=== PATIENT | female | born 1960 | race Caucasian/White ===

== ENCOUNTER 2025-08-31 16:02 | Emergency (ER) | payer MEDICAID ==
[~2025-08-31] VITALS: Ht 154.9 cm; Wt 81.8 kg
--- NOTE | 2025-08-31 16:12 | Physician Documentation ---
History of Present Illness ~ Chief Complaint: Urinary Symptoms Stated Complaint: ABD PAIN Time Seen by MD: 16:41 HPI Patient is a very pleasant 65-year-old female that presents to the emergency department for evaluation of abdominal pain times last 4 hours. Patient reports that she has had a history of renal calculi in the past she thought over the last several days that she may have been passing a kidney stone as she has some dysuria. Patient reports this morning she went to breakfast with her after she got home she vomited 1 time. Patient reports that she thought that the med may have been related to something she ate but patient also reports having chills and feeling cold since that time. Patient reports abdominal pain primarily on the left side radiating around to the left flank. Patient denies known fevers overt nausea or any diarrhea at this time. Patient denies any blood in her bowel or urine. No chest pain no shortness of breath no headache no dizziness at this time. Medication Reconciliation Allergies: Coded Allergies: Penicillins (Verified Allergy, Unknown, 08/31/25) codeine (Verified Allergy, Unknown, 08/31/25) Scheduled Cefpodoxime Proxetil (Cefpodoxime Proxetil), 2 TAB PO Q12H Review of Systems ROS As stated above in the HPI, otherwise all systems are reviewed and negative. Physical Exam Vital Signs: Temperature: 98.2, Source: Temporal, Heart Rate: 70, Respiratory Rate: 18, Pulse Oximetry: 99, Weight: 81.820 Oxygen Flow Rate: 0 Physical Exam VITALS: Reviewed and as above. GENERAL: Alert, no apparent distress. HEENT: Normocephalic, atraumatic, PERRL, EOMI, dry mucosa, no erythema RESPIRATORY: Lungs clear, normal breath sounds, no respiratory distress. CHEST: No accessory muscle use, no retractions CV: Regular rate, rhythm, no edema, no murmur, No: JVD GI: Soft, mild tenderness noted with palpation over the left lower quadrant and suprapubic region, bowels sounds present, no rebound, guarding, or rigidity BACK: Positive left CVA tenderness, or swelling MUSCULOSKELETAL No deformities, no edema SKIN: Warm and dry, no rash NEURO: Oriented x4, No motor or sensory deficit PSYCH: Normal mood and affect, no agitation Progress Results/Orders Results/Orders Orders - REESE,KIM A [employer] * Iv Access / Saline Lock * (08/31/25 18:14) Cult Urine + Line [address] (08/31/25 18:32) Completed Orders - REESEKIM MULLER [employer] Cbc/Diff (08/31/25 16:41) CMP (08/31/25 16:41) Lipase (08/31/25 16:41) Ua W/Microscopic, Cult If Ind (08/31/25 16:10) Normal Saline 1000ml (0.9% Sodium Chlori (08/31/25 18:15) Iohexol 300mg/Ml 100ml Inj. (Omnipaque-3 (08/31/25 18:21) Ceftriaxone Im Kit W/Lidocaine (Rocephin (08/31/25 19:20) Ceftriaxone/K6i-Yjetunvb 1gm (Rocephin 1 (08/31/25 19:35) Ketorolac Trometh 15mg/Ml Vial (Toradol (08/31/25 19:35) Medications Received in ER Medications (Trade) Dose Ordered Sig/Chiquis Route PRN Reason Start Time Stop Time Status Last Admin Dose Admin Sodium Chloride 1,000 ml @ 1,000 mls/hr ONCE ONCE IV 08/31/25 18:15 08/31/25 19:14 DC 08/31/25 18:15 1,000 MLS/HR Ceftriaxone Sodium 50 ml @ 100 mls/hr ONCE ONCE IV 08/31/25 19:35 08/31/25 20:04 DC 08/31/25 19:54 100 MLS/HR (Toradol injection) 15 mg ONCE ONCE IV 08/31/25 19:35 08/31/25 19:36 DC 08/31/25 19:53 15 MG Vital Signs 08/31/25 16:07 Temp 98.2 Pulse 70 Resp 18 B/P (MAP) 126/76 Pulse Ox 99 O2 Flow Rate 0 Laboratory Tests Test 08/31/25 16:10 08/31/25 17:05 Urine Specimen Description Cln catch midstream Urine Color Yellow Urine Clarity Clear Urine pH 6.0 Urine Specific Advance 1.010 Urine Protein 30 H Urine Glucose (UA) Negative Urine Ketones Negative Urine Occult Blood Large H Urine Nitrite Positive H Urine Bilirubin Negative Urine Urobilinogen 0.2 Urine Leukocyte Esterase Large H Urine RBC 20-50 Urine WBC Tntc H Urine Squamous Epithelial Cells Moderate Urine Bacteria 4+ Urine Culture Indicated Indicated Volume Urine Centrifuged 10 ml Urine Comment White Blood Count 15.0 H Red Blood Count 5.23 Hemoglobin 15.2 Hematocrit 46.0 H Mean Corpuscular Volume 88.0 Mean Corpuscular Hemoglobin 29.0 Mean Corpuscular Hemoglobin Concent 33.0 Red Cell Distribution Width 13.5 Platelet Count 234 Mean Platelet Volume 9.6 Neutrophils (%) (Auto) 83.6 H Lymphocytes (%) (Auto) 8.8 L Monocytes (%) (Auto) 7.1 Eosinophils (%) (Auto) 0.2 Basophils (%) (Auto) 0.3 Neutrophils # (Auto) 12.6 H Lymphocytes # (Auto) 1.3 Monocytes # (Auto) 1.1 H Eosinophils # (Auto) 0.0 Basophils # (Auto) 0.0 CBC Comment Sodium Level 139 Potassium Level 4.2 Chloride Level 106 Carbon Dioxide Level 21.8 L Anion Gap 11 Blood Urea Nitrogen 14 Creatinine 1.08 H Estimated GFR/1.73 m2 51 BUN/Creatinine Ratio 13.0 Glucose Level 210 H Calcium Level 9.4 Total Bilirubin 0.5 Aspartate Amino Transf (AST/SGOT) 23 Alanine Aminotransferase (ALT/SGPT) 26 Alkaline Phosphatase 169 H Total Protein 8.1 Albumin 3.8 Globulin 4.3 Albumin/Globulin Ratio 0.9 L Lipase 32 Chemistry Comments Microbiology Date/Time Source Procedure Growth Status 08/31/25 18:32 Urine Clean Catch Midstream Urine Culture - Preliminary Culture received. Resulted Medical Decision Making Additional information obtaine: other Findings Medical Decision-Making Diagnosis: Acute pyelonephritis with urinary tract infection Complexity of Care: Moderate Assessment and Clinical Reasoning: This 65-year-old female presented with left-sided abdominal pain radiating to the left flank, dysuria, vomiting, and chills, consistent with acute pyelonephritis. The diagnosis was supported by clinical presentation of flank pain, which is nearly universal in acute pyelonephritis, along with laboratory evidence of urinary tract infection. [2] Her history of renal calculi raised concern for potential urolithiasis with concurrent infection, though she denied hematuria and had no fever documented at presentation. Risk Stratification: The patient was assessed as having uncomplicated acute pyelonephritis appropriate for outpatient management. She demonstrated mild illness severity without sepsis, no persistent vomiting after initial treatment, stable medical conditions, and ability to tolerate oral therapy. While her history of renal stones represents a potential complicating factor, the absence of imaging findings suggesting obstruction or abscess and her clinical improvement with initial therapy supported outpatient disposition. [1-4] Treatment Plan and Rationale: The patient received appropriate initial management including intravenous fluid resuscitation, ketorolac for pain control, and ceftriaxone 1-2 grams intravenously as first-line parenteral therapy. Given increasing fluoroquinolone and trimethoprim-sulfamethoxazole resistance rates in community-acquired urinary pathogens, administration of a long-acting parenteral antibiotic prior to discharge is recommended when local resistance to oral agents may exceed 10%. [1-3] For outpatient continuation therapy, oral fluoroquinolone or trimethoprim- sulfamethoxazole would be appropriate empiric choices pending urine culture and susceptibility results. Alternatively, a third-generation oral cephalosporin such as cefpodoxime may be considered as step-down therapy. The standard du ration of therapy for uncomplicated pyelonephritis is [1-2][5-6] 5-7 days for fluoroquinolones or 7-14 days for other agents. [7-8] Follow-up and Monitoring: Close follow-up within 24-48 hours is essential to confirm clinical improvement, as patients discharged before susceptibility results require monitoring to ensure the selected oral agent is appropriate. The patient was counseled to return immediately if symptoms worsen or fail to improve within 1-2 days, as this would mandate repeat urine culture and imaging to evaluate for obstruction or other anatomical complications. Urine culture results will guide definitive antibiotic selection, and therapy should be adjusted if resistance to the empiric oral agent is identified. [3][9] Disposition: Discharge to home with oral antibiotic prescription, close outpatient follow-up arranged, and explicit return precautions provided. Urinary Diff Dx:Considerations: Include: AAA, , Aortic dissection, Appendicitis, Bowel obstruction, Cholelithiasis, Choleangitis, DJD, Ectopic , Hepatitis, HNP, Impaction, Intrauterine , Musculoskeletal pain, Ovarian torsion, Pancreatitis, PID, Post-Op complication, Pyelonephritis, Renal failure, Strain, Urinary Obstruction, Urolithiasis, Urinary retention, UTI, Vaginitis, Other Genital Diff Dx:Considerations: Include: -Complete, - Incomplete, -Inevitable, Ablortion-Missed, -Threatened, Abruptio placentae, Bartholin abscess, Bartholin cyst, Blood loss anemia, Constipation, Cervicitis, Dsymenorrhea, Ectopic , Foreign body, Hormonal, Hidradenitis suppurativa, Intrauterine , Menorrhagia, Menometrorrhagia, Menstrual bleeding, Myomatous uterus, Perianal abscess, Physiologic discharge, Pinworms, PID, Placenta previa, , Precipitous Hct, Trauma, UTI, Vaginitis(osis)-Atrophic, Vaginitis, Vaginitis(osis)-Bacterial, Vaginitis(osis)- Candidal, Vaginitis(osis)-Contact, Vaginitis(osis)-Herpes, Vaginitis(osis)- Trich., Other Departure Disposition: HOME / SELF CARE / HOMELESS Impression: Primary Impression: Acute urinary tract infection Additional Impression: Acute pyelonephritis Condition: Stable Discharge Instructions: Dysuria, Pyelonephritis, Adult, Urinary Tract Infection, Adult Additional Instructions: Your Diagnosis You were treated in the emergency department for a kidney infection (also called pyelonephritis). This is a bacterial infection that affects one or both of your kidneys. Your Medication You have been prescribed cefpodoxime 200 mg tablets. This is an antibiotic that will help clear the infection from your kidneys. [1] How to Take Your Medication Take one tablet by mouth twice daily (morning and evening) Take this medication with food to help your body absorb it better Continue taking this medication for the full 10 days, even if you start feeling better after a few days [1-2] Do not skip doses - skipping doses or not finishing the full course may make the infection harder to treat in the future [1-2] What to Expect You should start feeling better within 1-2 days of starting the antibiotic Common side effects may include diarrhea, nausea, or upset stomach Diarrhea is common with antibiotics and usually goes away when you finish the medication [1-2] When to Seek Medical Attention Return to the emergency department or call your doctor right away if you experience: Fever that gets worse or doesn't improve within 48 hours Worsening pain in your back, side, or abdomen Persistent vomiting that prevents you from taking your medication Blood in your urine Severe watery or bloody diarrhea, even if it occurs weeks after finishing the antibiotic [1-2] Signs of allergic reaction (rash, hives, difficulty breathing, swelling of face or throat) No improvement in your symptoms after 2-3 days of treatment Follow-Up Care Follow up with your primary care doctor as directed Your doctor may want to recheck your urine to make sure the infection has cleared Drink plenty of water to help flush bacteria from your urinary system Important Reminders This antibiotic only treats bacterial infections - it will not work for viral infections like colds or flu [1-2] Finish all 10 days of medication even if you feel completely better Do not share this medication with others Store the medication at room temperature away from moisture and heat Referrals: NO PRIMARY CARE PROVIDER (PCP) Prescriptions Phenazopyridine HCl (Pyridium) 100 Mg Tablet 1 TAB PO Q8H for urinary discomfort for 2 Days, #6 TAB 0 Refills Prov: KIM LEIGH 08/31/25 Cefpodoxime Proxetil (Cefpodoxime Proxetil) 100 Mg/5 Ml Susp.recon 2 TAB PO Q12H for 10 Days, #20 TAB 0 Refills Prov: KIM LEIGH 08/31/25 Education Educated: Patient Educated regarding: diagnosis, treatment, need for follow up Signature Scribe Signature: A Attestation: Scribed for Kim Leigh by JUDY Youssef . 08/31/25 20:56 KIM LEIGH Aug 31, 2025 16:12
[2025-08-31 17:27] LABS: MEAN PLATELET VOLUME 9.6 FL (7.4-10.4); RED CELL DISTRIBUTION WIDTH 13.5 % (11.5-14.5)
[2025-08-31 17:44] LABS: CREATININE 1.08 MG/DL (0.40-0.90); TOTAL CARBON DIOXIDE 21.8 MMOL/L (24-32); eCRCL 40 ML/MIN; eGFR 51 ML/MIN
[2025-08-31 18:12] LABS: LEUKOCYTE ESTERASE ,URINE LARGE (Neg); NITRITES, URINE POSITIVE (Neg); OCCULT BLOOD,URINE LARGE (Neg); UA COLLECTION TYPE CLN CATCH MIDSTREAM
[2025-08-31] MEDS: normal saline 1000ml 1,000 ML IV ONE (18:15)
[2025-08-31] MEDS ORDERED: iohexol 300mg/ml 100ml inj. ONE (18:21)
[2025-08-31 18:32] LABS: SQUAMOUS EPITHELIAL CELL,UR MODERATE /LPF (FEW)
[2025-08-31] MEDS ORDERED: CefTRIAXone 1000mg IM Kit (w/lidocaine diluent) IM ONE (19:20)
[2025-08-31] MEDS: ketorolac trometh 15mg/ml vial 15 MG/ML ML IV ONE (19:53)
[2025-08-31] MEDS: CefTRIAXone/D5W-Rocephin 1gm 50 ML IV ONE (19:54)
[2025-08-31] MEDS ORDERED: CEFP100S9 PO (20:52)
[2025-08-31] MEDS ORDERED: PHEN-824 PO (20:55)
[2025-08-31] MEDS: phenazopyridine 100mg tablet PO ONE (21:11)
[2025-08-31 21:14] VITALS: BP 125/74; PULSE 70; RESP 18; TEMP 98.6; O2SAT 99
== END 2025-08-31 21:15 | disposition home or self-care (01) ==
LOC: ER 16:03
DX: N39.0 Urinary tract infection, site not specified (principal); N10 Acute pyelonephritis; Z87.442 Personal history of urinary calculi; Z88.0 Allergy status to penicillin; Z88.5 Allergy status to narcotic agent
CPT/HCPCS: 36415; 80053; 81001; 83690; 85025; 87077; 87088; 87186; 96361; 96365; 96375; 99284; J0696; J1885; J7030; Q9967